=== PATIENT | male | born 1955 | race African-American/Black ===

== ENCOUNTER 2023-01-27 13:35 | Emergency (ER) | payer MEDICAID, OTHER ==
[~2023-01-27] VITALS: Ht 165.1 cm; Wt 81.0 kg
[2023-01-27 14:12] VITALS: BP 171/78
[2023-01-27 16:36] LABS: HEMATOCRIT. 40.5 % (42.0-52.0); HEMOGLOBIN. 13.8 g/dL (14.0-18.0); MEAN CORPUSCULAR HEMOGLOBIN 32.9 pg (28.0-32.0); MEAN CORPUSCULAR VOLUME 96.8 fL (80.0-94.0); MEAN PLATELET VOLUME 8.9 fl (7.4-10.4); PLATELET 170 x1000/uL (130-400); RED BLOOD CELL COUNT 4.19 mill/uL (4.7-6.1); RED CELL DISTRIBUTION WIDTH 12.6 % (11.6-14.6)
[2023-01-27 16:39] LABS: CHLORIDE 108 mEq/L (98-107)
[2023-01-27 19:12] LABS: PLATELET ESTIMATE NORMAL
[2023-01-27] MEDS ORDERED: IBUP-2028 MT (20:39)
== END 2023-01-27 21:00 | disposition home or self-care (01) ==
LOC: ER 13:35
DX: R63.4 Abnormal weight loss (principal); R22.9 Localized swelling, mass and lump, unspecified
CPT/HCPCS: 36415; 71045; 73130; 80053; 85025; 99284